=== PATIENT | male | born 1995 | race African-American/Black ===

== ENCOUNTER 2019-01-30 14:54 | Inpatient (IN) | payer OTHER ==
[~2019-01-30] VITALS: Ht 180.3 cm; Wt 111.4 kg
[2019-01-30] VITALS (25 sets, daily range): BP systolic 99–112; BP diastolic 61–83
[2019-01-30] MEDS ORDERED: NS(*) 0.9% 1000 ML BAG 1,000 ML IV ONE (14:58)
[2019-01-30 15:10] LABS: PLATELET COUNT, AUTOMATED 268 K/uL (150-450)
--- NOTE | 2019-01-30 15:16 | ER Report ---
History and Physical Time Seen By MD: 15:00 Hx. of Stated Complaint: PATIENT TOOK 1 BOTTLE OF BENDADRYL. FOUND UNRESPONSIVE AT THE SCENE HPI/ROS CHIEF COMPLAINT: Overdose HISTORY OF PRESENT ILLNESS: Patient is a 24-year-old male who is suspected of taking a diphenhydramine overdose unknown time. The bottle of Benadryl sound to the patient there were apparently 100 tablets of 25 mg of Benadryl in the bottle and there was one pill remaining in the bottle. I am unable to obtain history from the patient as he is obtunded. EMS found the patient lying on the ground next to the bottle of Benadryl. There is history that the patient's girlfriend broke up with him last night and found him later today and she is a one who initiated the EMS call. Electronic medical record was reviewed. No prior contacts for this patient. It is unknown what past medical or surgical history or allergies this patient has. REVIEW OF SYSTEMS: Unable to obtain as patient is obtunded Allergies: Coded Allergies: ketamine (Verified Allergy, Severe, 01/30/19) Unable To Obtain Past Medical: Unable to Obtain/Update Constitutional Vital Sign - Last 24 Hours 01/30/19 01/30/19 01/30/19 01/30/19 14:53 14:54 14:57 14:59 Pulse 135 143 Resp 18 21 B/P (MAP) 142/98 142/98 (113) 180/99 (126) Pulse Ox 98 91 O2 Delivery Nasal Cannula 01/30/19 01/30/19 01/30/19 01/30/19 15:00 15:04 15:06 15:08 Pulse 153 Resp 24 B/P (MAP) 139/89 (106) 120/61 (80) 136/93 (107) Pulse Ox 72 01/30/19 01/30/19 01/30/19 01/30/19 15:09 15:10 15:12 15:14 Pulse 116 Resp 13 10 B/P (MAP) 140/73 (95) 166/111 (129) 174/99 (124) Pulse Ox 100 100 01/30/19 01/30/19 01/30/19 01/30/19 15:16 15:18 15:19 15:20 Pulse 117 Resp 13 B/P (MAP) 158/82 (107) 146/103 (117) 139/95 (110) Pulse Ox 100 01/30/19 01/30/19 01/30/19 01/30/19 15:22 15:24 15:26 15:29 Pulse 101 97 Resp 19 12 B/P (MAP) 132/67 (88) 130/75 (93) Pulse Ox 98 97 01/30/19 01/30/19 01/30/19 01/30/19 15:30 15:30 15:34 15:35 Pulse 99 Resp 15 B/P (MAP) 131/80 (97) 132/89 (103) Pulse Ox 95 FiO2 35.0 01/30/19 01/30/19 01/30/19 01/30/19 15:39 15:44 15:45 15:49 Pulse 94 95 98 Resp 16 14 17 B/P (MAP) 124/74 (91) Pulse Ox 97 96 96 01/30/19 01/30/19 01/30/19 01/30/19 15:50 15:54 15:55 15:59 Pulse 98 97 Resp 16 16 B/P (MAP) 128/79 (95) 126/78 (94) Pulse Ox 96 96 01/30/19 01/30/19 01/30/19 01/30/19 16:00 16:04 16:05 16:09 Pulse 90 83 Resp 14 13 B/P (MAP) 133/74 (93) 101/55 (70) Pulse Ox 97 95 01/30/19 01/30/19 01/30/19 01/30/19 16:10 16:10 16:13 16:15 Pulse 80 ??? Resp 13 ??? B/P (MAP) 93/48 (63) 93/48 (63) 93/49 (64) ???/??? Pulse Ox 96 ??? 01/30/19 01/30/19 01/30/19 01/30/19 16:15 16:18 16:18 16:20 B/P (MAP) ???/??? (1665) 89/44 (59) 89/44 88/63 (71) 01/30/19 01/30/19 01/30/19 01/30/19 16:20 16:25 16:25 16:30 Pulse 77 Resp 11 B/P (MAP) 88/63 97/66 (76) 97/66 97/55 (69) Pulse Ox 95 01/30/19 16:30 Pulse 77 Resp 14 B/P (MAP) 97/55 Pulse Ox 93 Intake and Output 01/30/19 01/30/19 01/31/19 15:00 23:00 07:00 Intake Total 2000 ml Output Total 200 ml Balance 1800 ml Physical Exam General/Constitutional: Patient is obtunded; GCS- E1,V1,M6=8 Head: Normocephalic and atraumatic. Eyes: Conjunctival clear, Pupils are dilated Ears:External canals are clear. Tympanic membranes are clear with normal landmarks and light reflex. Nares: No rhinorrhea or bleeding. Turbinates are pink and moist. Oropharyngeal: Mucous membranes are moist. There is no pharyngeal erythema or exudate. There are no palatal petechiae. Uvula is midline and symmetrical. Neck: Supple, no adenopathy. Cardiovascular: Heart is tachycardic Pulmonary: Lungs are clear to auscultation bilaterally. There are no wheezes, rales, or rhonchi. Chest rise is symmetrical Abdomen: Soft, nontender, no guarding or peritoneal signs. Extremities: No gross deformities, No peripheral cyanosis. Neuro: Obtunded GCS of 8, nonpurposeful symmetrical movements. Skin: No rashes, skin is warm dry and well perfused. Medical Decision Making Data Points Result Diagram: 01/31/1944501/31/19445 Laboratory Hematology Test 01/30/19 14:32 01/30/19 15:31 Magnesium Level 2.0 mg/dl (1.7-2.2) Total Creatine Kinase 175 U/L (55-170) Troponin I < 0.012 ng/ml Salicylates Level < 10 mg/L Salicylate Last Dose Date unk Serum Alcohol 30 mg/dl Urine Color Straw Urine Clarity Clear Urine pH 6.0 pH (4.8-9.5) Urine Specific Lindsay 1.003 Urine Protein Negative mg/dL (NEGATIVE) Urine Glucose (UA) Negative mg/dL (NEGATIVE) Urine Ketones Negative mg/dL (NEGATIVE) Urine Blood Negative (NEGATIVE) Urine Nitrite Negative (NEGATIVE) Urine Bilirubin Negative (NEGATIVE) Urine Urobilinogen Negative mg/dL (0.2-1.9) Urine Leukocyte Esterase Negative (NEGATIVE) Urine RBC None /HPF (0-2/HPF) Urine WBC <1 /HPF (0-5/HPF) Urine Squamous Epithelial Cells None /LPF (NONE-FEW) Urine Bacteria Negative /HPF (NONE-FEW) Urine Mucus None /HPF (NONE-FEW) Urine Opiates Screen Negative Urine Barbiturates Screen Negative Ur Tricyclic Antidepressants Screen Negative Urine Phencyclidine Screen Negative Urine Amphetamines Screen Negative Urine Benzodiazepines Screen Negative Urine Cocaine Screen Negative Urine Cannabinoids Screen Negative Chemistry Test 01/30/19 14:32 01/30/19 15:31 Magnesium Level 2.0 mg/dl (1.7-2.2) Total Creatine Kinase 175 U/L (55-170) Troponin I < 0.012 ng/ml Salicylates Level < 10 mg/L Salicylate Last Dose Date unk Serum Alcohol 30 mg/dl Urine Color Straw Urine Clarity Clear Urine pH 6.0 pH (4.8-9.5) Urine Specific Lindsay 1.003 Urine Protein Negative mg/dL (NEGATIVE) Urine Glucose (UA) Negative mg/dL (NEGATIVE) Urine Ketones Negative mg/dL (NEGATIVE) Urine Blood Negative (NEGATIVE) Urine Nitrite Negative (NEGATIVE) Urine Bilirubin Negative (NEGATIVE) Urine Urobilinogen Negative mg/dL (0.2-1.9) Urine Leukocyte Esterase Negative (NEGATIVE) Urine RBC None /HPF (0-2/HPF) Urine WBC <1 /HPF (0-5/HPF) Urine Squamous Epithelial Cells None /LPF (NONE-FEW) Urine Bacteria Negative /HPF (NONE-FEW) Urine Mucus None /HPF (NONE-FEW) Urine Opiates Screen Negative Urine Barbiturates Screen Negative Ur Tricyclic Antidepressants Screen Negative Urine Phencyclidine Screen Negative Urine Amphetamines Screen Negative Urine Benzodiazepines Screen Negative Urine Cocaine Screen Negative Urine Cannabinoids Screen Negative Toxicology Test 01/30/19 14:32 01/30/19 15:31 Salicylates Level < 10 mg/L Salicylate Last Dose Date unk Serum Alcohol 30 mg/dl Urine Opiates Screen Negative Urine Barbiturates Screen Negative Ur Tricyclic Antidepressants Screen Negative Urine Phencyclidine Screen Negative Urine Amphetamines Screen Negative Urine Benzodiazepines Screen Negative Urine Cocaine Screen Negative Urine Cannabinoids Screen Negative Urinalysis Test 01/30/19 15:31 Urine Color Straw Urine Clarity Clear Urine pH 6.0 pH (4.8-9.5) Urine Specific Lindsay 1.003 Urine Protein Negative mg/dL (NEGATIVE) Urine Glucose (UA) Negative mg/dL (NEGATIVE) Urine Ketones Negative mg/dL (NEGATIVE) Urine Blood Negative (NEGATIVE) Urine Nitrite Negative (NEGATIVE) Urine Bilirubin Negative (NEGATIVE) Urine Urobilinogen Negative mg/dL (0.2-1.9) Urine Leukocyte Esterase Negative (NEGATIVE) Urine RBC None /HPF (0-2/HPF) Urine WBC <1 /HPF (0-5/HPF) Urine Squamous Epithelial Cells None /LPF (NONE-FEW) Urine Bacteria Negative /HPF (NONE-FEW) Urine Mucus None /HPF (NONE-FEW) EKG/Imaging EKG Interpretation EKG shows normal sinus rhythm with left axis deviation and no significant ST or T-wave abnormalities noted. QTC is 464 ms. Monitor Interpretation: Normal Sinus Rhythm Imaging Chest x-ray shows approximately 1 cm above the myriam we will remove the ET tube 1 cm from 25 cm at the teeth to 24 cm. NG tube projects into the stomach below the diaphragm. ED Course/Re-evaluation Clinical Indication for ER IV: IV Access ED Course 01/30/2019 3:33:30 pm because patient is not protecting his airway; has a GCS of 8. The need for securing his airway was indicated. Based on criteria patient is soon to be difficult airway but not a difficult mask ventilation. We'll proceed with RSI. Procedure: Rapid sequence intubation. Indication for the procedure was airway protection. The patient was preoxygenated with 100% oxygen by face mask. The patient was given the following IV medications: 30 mg of etomidate, 200 mg of succinylcholine . The patient was orally endotracheally intubated under direct visualization with a 8.0 ETT. In line stabilization was performed during the procedure. Tracheal intubation was confirmed with misting on the tube; breath sounds were auscultated equally bilaterally; appropriate color change with [place] End Tidal CO2 detector. Chest X-ray shows ETT Centimeter above the Myriam at 25 Cm at the Teeth. The ET Tube Was Retracted 1 Cm to 24 Cm at the Teeth.. The procedure was performed by myself. 01/30/2019 3:48:06 pm I did speak with poison control regarding this patient. Treatment will require monitoring in an ICU setting with serial EKGs and continuous cardiac on entering. We will be watching for widening of the QRS complex. If this occurs treatment for a tricyclic-like reaction would be indicated. Further treatment with IV fluids and benzodiazepines until symptoms clear. Patient will be detained for suicide attempt. Patient is currently not medically cleared for detainment however once he is medically cleared we will uphold detainment. Decision to Disposition Date: Jan 30, 2019 Decision to Disposition Time: 15:49 Depart Departure Latest Vital Signs Vital Signs Date Time Temp Pulse Resp B/P (MAP) Pulse Ox O2 Delivery O2 Flow Rate FiO2 01/30/19 16:30 77 14 97/55 93 01/30/19 15:30 35.0 01/30/19 14:53 Nasal Cannula Impression: Primary Impression: Overdose of antipruritic Condition: Improved Disposition: Admitted from ER (to ICU Dr Carrillo) Problem Qualifiers Primary Impression: Overdose of antipruritic Encounter type: initial encounter Injury intent: intentional self-harm Qualified Codes: T49.1X2A - Poisoning by antipruritics, intentional self- harm, initial encounter CECILIA GRANDA MD Jan 30, 2019 15:16
[2019-01-30] MEDS ORDERED: PROPOFOL(*)1000 MG/100 ML VIAL 100 ML IV PRN (15:20)
[2019-01-30] MEDS ORDERED: MIDAZOLAM 2 MG/2 ML VIAL IVP ONE (15:25)
--- NOTE | 2019-01-30 15:33 | RADIOLOGY IMAGING REPORT ---
FACILITY: [facility] PATIENT NAME: Ortega Barbour : 1995 MR: [id number] V: [id number] EXAM DATE: ORDERING PHYSICIAN: CECILIA GRANDA TECHNOLOGIST: Location: [facility] - [place] Patient: Ortega Barbour : 1995 Visit/Account:[id number] Date of Sevice: 01/30/2019 Exam type: CHEST SINGLE AP History: Comparison: None. Findings: Lung volumes are low. Interstitial prominence may be accentuated by expiratory technique. No focal infiltrate, pleural effusion or pneumothorax. Heart size is prominent. ET tube is 17 mm above the myriam. The osseous structures are unremarkable. NG tube is coiled in the stomach. IMPRESSION: 1. ET tube is 17 mm above the myriam. 2. NG tube is coiled in stomach. 3. Low lung volumes without focal infiltrate. Report Dictated By: Jose De Jesus Soni MD at 01/30/2019 3:28 PM Report E-Signed By: Jose De Jesus Soni MD at 01/30/2019 3:30 PM WSN:[id number]
[2019-01-30] MEDS ORDERED: KCL (*) 20 MEQ/100 ML PREMIX 100 ML IV SCH (15:35)
[2019-01-30] MEDS ORDERED: EMS NS 0.9%(*) 1000 ML BAG 1,000 ML IV ONE (15:55)
[2019-01-30] MEDS ORDERED: fentaNYL CITR 100 MCG/2 ML AMP IVP ONE (16:00)
[2019-01-30] MEDS ORDERED: NS(*) 0.9% 500 ML BAG 500 ML IV ONE (16:10)
[2019-01-30] MEDS ORDERED: ETOMIDATE 40 MG/20 ML IVP ONE (16:10)
[2019-01-30] MEDS ORDERED: SUCCINYLCHOL CHL 100MG/5ML SYR IVP ONE (16:10)
--- NOTE | 2019-01-30 16:56 | RADIOLOGY IMAGING REPORT ---
FACILITY: [facility] PATIENT NAME: Ortega Barbour : 1995 MR: [id number] V: [id number] EXAM DATE: ORDERING PHYSICIAN: CECILIA GRANDA TECHNOLOGIST: Location: Patient: Ortega Barbour : 1995 Visit/Account:[id number] Date of Sevice: 01/30/2019 EXAMINATION: CT head without IV contrast HISTORY: AMS. TECHNIQUE: Axial CT images of the head were obtained from the vertex to the skull base without IV c ontrast, with coronal and sagittal 2D reconstructed images. One of the following dose optimization techniques was utilized in the performance of this exam: Autom ated exposure control; adjustment of the mA and/or kV according to the patient's size; or use of an i terative reconstruction technique. Specific details can be referenced in the facility's radiology C T exam operational policy. COMPARISON: None. FINDINGS: The intracranial contents are unremarkable. No CT evidence of intracranial hemorrhage, mass lesion, or acute infarct. No midline shift or extra-axial fluid collections. Bolivar-white differentiation is maintained. The calvarium is intact. The visualized paranasal sinuses and mastoid air cells are unopacified. IMPRESSION: Unremarkable noncontrast head CT. Report Dictated By: Daniel Amaro MD at 01/30/2019 4:48 PM Report E-Signed By: Daniel Amaro MD at 01/30/2019 4:52 PM WSN:[id number]
--- NOTE | 2019-01-30 16:59 | RADIOLOGY IMAGING REPORT ---
FACILITY: [facility] - [place] PATIENT NAME: Ortega Barbour : 1995 MR: [id number] V: [id number] EXAM DATE: ORDERING PHYSICIAN: CECILIA GRANDA TECHNOLOGIST: Location: [facility] - [place] Patient: Ortega Barbour : 1995 Visit/Account:[id number] Date of Sevice: 01/30/2019 EXAMINATION: CT cervical spine without IV contrast HISTORY: AMS. TECHNIQUE: Thin axial CT images of the cervical spine were obtained without IV contrast, with sagit mary and coronal 2D reconstructed images. One of the following dose optimization techniques was utilized in the performance of this exam: Autom ated exposure control; adjustment of the mA and/or kV according to the patient's size; or use of an i terative reconstruction technique. Specific details can be referenced in the facility's radiology C T exam operational policy. COMPARISON: None. FINDINGS: The cervical spine is negative for acute fracture or subluxation. Normal alignment. Vertebral body height and disc spaces are preserved. The dens is intact. The craniocervical junction demonstrates normal alignment. Endotracheal and enteric tubes in place. IMPRESSION: Negative cervical spine CT. Report Dictated By: Daniel Amaro MD at 01/30/2019 4:53 PM Report E-Signed By: Daniel Amaro MD at 01/30/2019 4:56 PM WSN:[id number]
[2019-01-30] MEDS ORDERED: FLUSH 10 ML SYR IVP PRN (17:00)
[2019-01-30] MEDS: KCL (*) 20 MEQ/100 ML PREMIX 100 ML IV SCH ×2 (17:53→19:55)
--- NOTE | 2019-01-30 18:11 | History & Physical ---
History of Present Illness Chief Complaint Diphenhydramine overdose. History of Present Illness Patient unable to give history as he was obtunded upon admission to ER then intubated and sedated. Per EMS, the patient's girlfriend broke up with him last night. The patient's roommate and friends are available to provide some history. The patient's friends note that his girlfriend told him last evening that she was but that she planned to terminate the and no longer wanted to see him. The friends checked on him this morning at about 10:30 and he was acting very cold and withdrawn. He declined an invitation to have breakfast with them. Per the friends, his girlfriend told them that he called her at 14:30 and was confused. She went to his house and found him confused. He then collapsed and she called 911. EMS found him obtunded with a bottle of 100-count Benadryl next to him. One pill remained in the bottle. The patient's friends found a suicide note on his phone that was timed to go out to friends and family at 1700 this evening. Per the patient's roommate, the patient has struggled with depression. He has not been on medications and has not had counseling. He did not know of a previous suicide attempt. History Unable To Obtain Past Medical: Unable to Obtain/Update Allergies: Coded Allergies: UNABLE TO OBTAIN (Unverified , 01/30/19) Other Social/Family Hx Unable to obtain. Review of Systems Other Unable to obtain. Exam Vital Signs Vital Signs Date Time Temp Pulse Resp B/P (MAP) Pulse Ox O2 Delivery O2 Flow Rate FiO2 01/30/19 16:55 94/56 01/30/19 16:45 74 14 95 01/30/19 14:53 Nasal Cannula General Appearance: Other Eyes: Other (Pupils are pinpoint.) Neck: No Masses Cardiovascular: Regular Rate and Rhythm Respiratory: Clear to Auscultation GI: Other (Bowel sounds absent.) Lymph: Cervical Nodes Benign Extremities: Warm, Perfused, Other (No edema.) Integumentary: Other (Skin is dry. No perspiration.) Psych: Other (Intubated and sedated.) Medical Decision Making Data Points Result Diagram: 01/30/19 1432 01/30/19 1432 Item Value Date Time Salicylates Level < 10 mg/L 01/30/19 1432 Salicylate Last Dose Date unk 01/30/19 1432 Acetaminophen Level < 10 ug/ml 01/30/19 1432 Serum Alcohol 30 mg/dl 01/30/19 1432 Urine Opiates Screen Negative 01/30/19 1531 Urine Barbiturates Screen Negative 01/30/19 1531 Ur Tricyclic Antidepressants Screen Negative 01/30/19 1531 Urine Phencyclidine Screen Negative 01/30/19 1531 Urine Amphetamines Screen Negative 01/30/19 1531 Urine Benzodiazepines Screen Negative 01/30/19 1531 Urine Cocaine Screen Negative 01/30/19 1531 Urine Cannabinoids Screen Negative 01/30/19 1531 Sodium Level 140 mmol/L 01/30/19 1432 Potassium Level 3.2 mmol/L L 01/30/19 1432 Chloride Level 105 mmol/L 01/30/19 1432 Carbon Dioxide Level 25 mmol/L 01/30/19 1432 Blood Urea Nitrogen 6 mg/dl L 01/30/19 1432 Creatinine 1.30 mg/dl H 01/30/19 1432 Glomerular Filtration Rate Calc > 60.0 01/30/19 1432 Random Glucose 151 mg/dl H 01/30/19 1432 Calcium Level 9.2 mg/dl 01/30/19 1432 Magnesium Level 2.0 mg/dl 01/30/19 1432 Total Bilirubin 0.8 mg/dl 01/30/19 1432 Aspartate Amino Transf (AST/SGOT) 29 U/L 01/30/19 1432 Alanine Aminotransferase (ALT/SGPT) 32 U/L 01/30/19 1432 Alkaline Phosphatase 45 U/L 01/30/19 1432 Total Protein 6.8 g/dl 01/30/19 1432 Albumin 4.2 g/dl 01/30/19 1432 Total Creatine Kinase 175 U/L H 01/30/19 1432 Troponin I < 0.012 ng/ml 01/30/19 1432 EKG / Imaging EKG Interpretation Initial EKG shows sinus tachycardia with slightly prolonged QT interval. Imaging FACILITY: [facility] PATIENT NAME: Ortega Barbour : 1995 MR: [id number] V: [id number] EXAM DATE: [id number] ORDERING PHYSICIAN: CECILIA GRANDA TECHNOLOGIST: Location: [facility] - [place] Patient: Ortega Barbour : 1995 Visit/Account:[id number] Date of Sevice: 01/30/2019 Exam type: CHEST SINGLE AP History: Comparison: None. Findings: Lung volumes are low. Interstitial prominence may be accentuated by expiratory technique. No focal infiltrate, pleural effusion or pneumothorax. Heart size is prominent. ET tube is 17 mm above the myriam. The osseous structures are unremarkable. NG tube is coiled in the stomach. IMPRESSION: 1. ET tube is 17 mm above the myriam. 2. NG tube is coiled in stomach. 3. Low lung volumes without focal infiltrate. Report Dictated By: Jose De Jesus Soni MD at 01/30/2019 3:28 PM Report E-Signed By: Jose De Jesus Soni MD at 01/30/2019 3:30 PM WSN:[id number] FACILITY: [facility] PATIENT NAME: Ortega Barbour : 1995 MR: [id number] V: [id number] EXAM DATE: ORDERING PHYSICIAN: CECILIA GRANDA TECHNOLOGIST: Location: [facility] - [place] Patient: Ortega Barbour : 1995 Visit/Account:[id number] Date of Sevice: 01/30/2019 EXAMINATION: CT cervical spine without IV contrast HISTORY: AMS. TECHNIQUE: Thin axial CT images of the cervical spine were obtained without IV contrast, with sagittal and coronal 2D reconstructed images. One of the following dose optimization techniques was utilized in the performance of this exam: Automated exposure control; adjustment of the mA and/or kV according to the patient's size; or use of an iterative reconstruction technique. Specific details can be referenced in the facility's radiology CT exam operational policy. COMPARISON: None. FINDINGS: The cervical spine is negative for acute fracture or subluxation. Normal alignment. Vertebral body height and disc spaces are preserved. The dens is intact. The craniocervical junction demonstrates normal alignment. Endotracheal and enteric tubes in place. IMPRESSION: Negative cervical spine CT. Report Dictated By: Daniel Amaro MD at 01/30/2019 4:53 PM Report E-Signed By: Daniel Amaro MD at 01/30/2019 4:56 PM WSN:[id number] FACILITY: [facility] PATIENT NAME: Ortega Barbour DOB: 1995 MR: [id number] V: [id number] EXAM DATE: ORDERING PHYSICIAN: CECILIA GRANDA TECHNOLOGIST: Location: [facility] - [place] Patient: Ortega Barbour : 1995 Visit/Account:[id number] Date of Sevice: 01/30/2019 EXAMINATION: CT head without IV contrast HISTORY: AMS. TECHNIQUE: Axial CT images of the head were obtained from the vertex to the skull base without IV contrast, with coronal and sagittal 2D reconstructed images. One of the following dose optimization techniques was utilized in the performance of this exam: Automated exposure control; adjustment of the mA and/or kV according to the patient's size; or use of an iterative reconstruction technique. Specific details can be referenced in the facility's radiology CT exam operational policy. COMPARISON: None. FINDINGS: The intracranial contents are unremarkable. No CT evidence of intracranial hemorrhage, mass lesion, or acute infarct. No midline shift or extra-axial fluid collections. Bolivar-white differentiation is maintained. The calvarium is intact. The visualized paranasal sinuses and mastoid air cells are unopacified. IMPRESSION: Unremarkable noncontrast head CT. Report Dictated By: Daniel Amaro MD at 01/30/2019 4:48 PM Report E-Signed By: Daniel Amaro MD at 01/30/2019 4:52 PM WSN:[id number] Pre-Admit Course Medical Record Review: No Assessment and Plan Problems: (1) Diphenhydramine overdose Status: Acute Assessment & Plan: Admit to ICU. Monitor on telemetry. Repeat Tylenol level at 18:30. Repeat ABG at 18:30. Hydrate with NS. Serial EKGs to monitor QT interval. Potassium replacement IV with follow up BMP after potassium infused. Repeat labs in am. TSH is pending. B[facility] consult when patient extubated. Continue to consult with Poison Control as needed. The patient will remain intubated and sedated until he is no longer confused/combative and can manage his airway. On a police hold currently. Time Spent on Plan of Care: < 30 min Venous Thromboembolism Antithrombotics Is Pt On Any Antithrombotics?: Yes Exam Sepsis Risk: No Definite Risk Problem Qualifiers (1) Diphenhydramine overdose: Encounter type: initial encounter STEPHANIE BEARD MD Jan 30, 2019 18:11
--- NOTE | 2019-01-30 18:21 | EKG ---
FACILITY: [facility] - [place] PATIENT NAME: TAMELA SACNHEZ : [id number] MR: [id number] V: [id number] EXAM DATE: ORDERING PHYSICIAN: CECILIA GRANDA TECHNOLOGIST: WERO Test Reason : OD Blood Pressure : / mmHG Vent. Rate : 097 BPM Atrial Rate : 097 BPM P-R Int : 188 ms QRS Dur : 100 ms QT Int : 366 ms P-R-T Axes : 047 -61 002 degrees QTc Int : 464 ms Normal sinus rhythm Left axis deviation Non- specific T wave changes. Abnormal ECG No previous ECGs available Confirmed by DEBORAH MCGRATH ([id number]) on 01/30/2019 8:41:13 PM Referred By: JESUS ALBERTO Confirmed By:DEBORAH MCGRATH
--- NOTE | 2019-01-30 18:22 | EKG ---
FACILITY: [facility] - [place] PATIENT NAME: TAMELA SANCHEZ : [id number] MR: [id number] V: [id number] EXAM DATE: ORDERING PHYSICIAN: CECILIA GRANDA TECHNOLOGIST: Test Reason : Blood Pressure : / mmHG Vent. Rate : 080 BPM Atrial Rate : 080 BPM P-R Int : 188 ms QRS Dur : 084 ms QT Int : 410 ms P-R-T Axes : 053 -20 009 degrees QTc Int : 472 ms Normal sinus rhythm Non- specific T changes. Borderline prolonged QTC. When compared with ECG of 30-JAN-2019 15:35, No significant change was found Confirmed by DEBORAH MCGRATH ([id number]) on 01/30/2019 8:42:06 PM Referred By: Confirmed By:DEBORAH MCGRATH
[2019-01-30] MEDS: PROPOFOL(*)1000 MG/100 ML VIAL 100 ML IV PRN ×3 (18:47→23:46)
--- NOTE | 2019-01-30 20:16 | EKG ---
FACILITY: [facility] - [place] PATIENT NAME: TAMELA SANCHEZ : [id number] MR: [id number] V: [id number] EXAM DATE: ORDERING PHYSICIAN: STEPHANIE BEARD TECHNOLOGIST: COMFORT Test Reason : OVERDOSE, QT CHECK Blood Pressure : / mmHG Vent. Rate : 073 BPM Atrial Rate : 073 BPM P-R Int : 194 ms QRS Dur : 086 ms QT Int : 408 ms P-R-T Axes : 054 -02 009 degrees QTc Int : 449 ms Normal sinus rhythm Non- specific ST-T changes. Abnormal ECG When compared with ECG of 30-JAN-2019 17:32, No significant change was found Confirmed by DEBORAH MCGRATH ([id number]) on 01/30/2019 8:43:10 PM Referred By: KISHA Confirmed By:DEBORAH MCGRATH
--- NOTE | 2019-01-30 20:18 | BHS - Psychiatric Evaluation ---
ER - Title 25 MHE Evaluation Title 25 Evaluation Patient Detained By: Physician Referral Source: Professional: Dr. Chance Date Patient Detained: Jan 30, 2019 Time Patient Detained: 15:36 Date Fdc Expires: Feb 02, 2019 Time Fdc Expires: 15:36 Legal Status: Police Hold: No Legal Status: Residence: [facility] Assessment Data Provided By: Family Member(s) (Patient mother), Other Source (Patient Electronic Medical Record (EMR)) HPI/ROS: PATIENT TOOK 1 BOTTLE OF BENDADRYL. FOUND UNRESPONSIVE AT THE SCENE HPI/ROS CHIEF COMPLAINT: Overdose HISTORY OF PRESENT ILLNESS: Patient is a 24-year-old male who is suspected of taking a diphenhydramine overdose unknown time. The bottle of Benadryl sound to the patient there were apparently 100 tablets of 25 mg of Benadryl in the bottle and there was one pill remaining in the bottle. I am unable to obtain history from the patient as he is obtunded. EMS found the patient lying on the ground next to the bottle of Benadryl. There is history that the patient's girlfriend broke up with him last night and found him later today and she is a one who initiated the EMS call. Electronic medical record was reviewed. No prior contacts for this patient. It is unknown what past medical or surgical history or allergies this patient has. Admit due to SI or Attempt: Yes Suicide Plan: Has Plan with Access Alcohol or Drugs Involved: Yes (alcohol) Is Patient Info Reliable: No (Patient is unconscious and intubated) Is Collateral Info Reliable: Yes (Yes patient mother) Current Home Psych Meds: Patient mother reports no psychiatric medications. Mental Status Exam General Appearance: Other (Patient is unconscious and intubated) Insight Judgment: Poor Current Risk & History Current Dangerous Risk Assessm: Other (Patient is unconscious and intubated) Past Dangerous Risk Assessm: Other (Patient mother is not reporting any past attempts at this time.) Previous Suicide Attempt: No Previous Attempt (No previous attempt per patient mother's report) Previous Psychiatric Illness: No Previous Psychiatric Treatment: No Risk Assessment & Disposition Evaluated Risk Assessment: Unable to evaluate at this time. Meets Mental Illness Req.: No Meets Dangerousness Req.: No (Unable to determine. It is believed patient intentionally overdosed. He is unconscious and intubated. ) Emergency Fdc to be: Lifted Date of Decision: Jan 30, 2019 Time of Decision: 20:10 Patient is Medically Stable at: No Disposition: ICU WILDER GARCIA LPC Jan 30, 2019 20:18
[2019-01-30] MEDS: ORAL SUCTION/CHLORHX/SWAB KIT MT SCH (21:12)
[2019-01-30] MEDS: NS(*) 0.9% 1000 ML BAG 1,000 ML IV PRN (21:13)
--- NOTE | 2019-01-30 22:19 | EKG ---
FACILITY: [facility] PATIENT NAME: TAMELA SANCHEZ : [id number] MR: [id number] V: [id number] EXAM DATE: ORDERING PHYSICIAN: STEPHANIE BEARD TECHNOLOGIST: COMFORT Test Reason : OVERDOSE, QT CHECK Blood Pressure : / mmHG Vent. Rate : 067 BPM Atrial Rate : 067 BPM P-R Int : 212 ms QRS Dur : 084 ms QT Int : 418 ms P-R-T Axes : 047 002 002 degrees QTc Int : 441 ms Sinus rhythm with 1st degree AV block Nonspecific ST abnormality Abnormal ECG No previous ECGs available Confirmed by DEBORAH MCGRATH ([id number]) on 01/31/2019 1:23:14 AM Referred By: KISHA Confirmed By:DEBORAH MCGRATH
[2019-01-31] VITALS (30 sets, daily range): BP systolic 93–124; BP diastolic 48–77; Ht 180.3 cm; Wt 111.4 kg
[2019-01-31] MEDS: PROPOFOL(*)1000 MG/100 ML VIAL 100 ML IV PRN ×4 (02:18→09:00)
[2019-01-31] MEDS: NS(*) 0.9% 1000 ML BAG 1,000 ML IV PRN ×3 (04:45→12:40)
[2019-01-31 05:01] LABS: PLATELET COUNT, AUTOMATED 171 K/uL (150-450)
--- NOTE | 2019-01-31 07:32 | Hospitalist Progress Note ---
Subjective Progress Notes Subjective Sedated on ventilator. No dysrhythmias. No obvious seizure activity. Physical Exam Vital Signs Date Time Temp Pulse Resp B/P (MAP) Pulse Ox O2 Delivery O2 Flow Rate FiO2 01/31/19 07:16 30.0 01/31/19 07:16 87 01/31/19 06:00 14 93/48 (63) 94 Mechanical Ventilator 01/31/19 05:00 98.8 Intake and Output 01/31/19 07:00 Intake Total 4572.4 ml Output Total 2430 ml Balance 2142.4 ml Intake IV Total 4572.4 ml Output Urine Total 2400 ml Gastric Drainage Total 30 ml General Appearance: Other (sedated on ventilator) ENT: Other (ET/OG tubes in place) Cardiovascular: Regular Rate and Rhythm Respiratory: Clear to Auscultation GI: Other (rare BS) Extremities: Warm, Perfused Result Diagram: 01/31/196 01/31/19445 Monitor Interpretation: Normal Sinus Rhythm Assessment and Plan Problems: (1) Diphenhydramine overdose Status: Acute Assessment & Plan: He is now more than 2 half-lives out from the ingestion. Stable on ventilator. Telemetry unremarkable. QTc in normal range. Repeat Tylenol level was negative. Potassium level now in normal range with replacement. TSH is pending. BHS/psychiatric consult when patient extubated. Emergency custodial lifted as he is intubated/sedated, but it may need to be reinstated. Will lift sedation through the morning and reassess his mental status. Will extubate as soon as he is stable/not agitated/able to follow some commands. Exam Sepsis Risk: No Definite Risk ROBEL BEARD MD Jan 31, 2019 07:32
[2019-01-31] MEDS: ENOXAPARIN 40 MG/0.4ML SYR SC SCH (08:51)
[2019-01-31] MEDS: ORAL SUCTION/CHLORHX/SWAB KIT MT SCH (08:51)
--- NOTE | 2019-01-31 12:21 | EKG ---
FACILITY: [facility] PATIENT NAME: TAMELA SANCHEZ : [id number] MR: [id number] V: [id number] EXAM DATE: ORDERING PHYSICIAN: ROBEL BEARD TECHNOLOGIST: TONI Foley Reason : CP Blood Pressure : / mmHG Vent. Rate : 082 BPM Atrial Rate : 082 BPM P-R Int : 172 ms QRS Dur : 092 ms QT Int : 358 ms P-R-T Axes : 038 013 -03 degrees QTc Int : 418 ms Sinus rhythm Nonspecific ST findings similar to previous QTc interval in normal range Borderline ECG Confirmed by ROBEL BEARD ([id number]) on 01/31/2019 12:52:15 PM Referred By: KISHA Confirmed By:ROBEL BEARD
--- NOTE | 2019-01-31 12:24 | RADIOLOGY IMAGING REPORT ---
FACILITY: [facility] PATIENT NAME: Ortega Barbour : 1995 MR: [id number] V: [id number] EXAM DATE: ORDERING PHYSICIAN: ROBEL BEARD TECHNOLOGIST: Location: [facility] [place] Patient: Ortega Barbour : 1995 Visit/Account:[id number] Date of Sevice: 01/31/2019 Single view of the chest Indication: Aspiration. Comparison: X-ray examination of the chest from January 30. Findings: Patient has been extubated. Low volumes without focal consolidation, effusion or pneumothorax. No a cute bony finding. IMPRESSION: 1. Post extubation. Low volumes without acute finding. Report Dictated By: Brian Martinez MD at 01/31/2019 12:20 PM Report E-Signed By: Brian Martinez MD at 01/31/2019 12:21 PM WSN:[id number]
[2019-01-31] MEDS ORDERED: NS(*) 0.9% 1000 ML BAG 1,000 ML IV PRN (14:49)
[2019-01-31] MEDS ORDERED: ACETAMINOPHEN 500 MG TAB PO ONE (16:00)
[2019-02-01] VITALS (10 sets, daily range): BP systolic 113–131; BP diastolic 67–86
[2019-02-01 05:07] LABS: PLATELET COUNT, AUTOMATED 185 K/uL (150-450)
[2019-02-01] MEDS ORDERED: ACETAMINOPHEN 500 MG TAB PO PRN (07:55)
[2019-02-01] MEDS ORDERED: BENZOCAINE/MENTHOL 1 EACH LOZG PO PRN (07:55)
[2019-02-01] MEDS: ENOXAPARIN 40 MG/0.4ML SYR SC SCH (08:13)
--- NOTE | 2019-02-01 13:31 | Hospitalist Depart ---
Discharge Summary Reason for Hosp/Final Diag: (1) Diphenhydramine overdose Status: Acute Hospital Course & Plan: Patient self extubated 01.31.2019 during sedation vacation and remained stable. Telemetry remained unremarkable. QTc in normal range. Repeat Tylenol level was negative. Potassium level in normal range with r eplacement. TSH WNL. S/psychiatric consult and patient determined best course is to go to [facility] as inpatient. Discharged to continue therapy. Departure Weight (Pounds): 245 Weight (Ounces): 8.0 Result Diagram: 02/01/1944902/01/19449 Condition: Improved Discharge: [facility] Discharge Instructions Home Meds Unable to Obtain Active Prescriptions or Reported Meds Diet: Regular Activity: As Tolerated Venous Thromboembolism Antithrombotics Is Pt On Any Antithrombotics?: Yes MINO SU DO Feb 01, 2019 13:31
== END 2019-02-01 13:00 | DRG 917 ==
LOC: ER 15:19 → ICU 16:31
PROVIDERS: ADMIT Internal Medicine; ATTEND Internal Medicine
PROC: 0BH17EZ Insertion of Endotracheal Airway into Trachea, Via Natural or Artificial Opening (ICD-10-PCS; principal; 2019-01-30)
PROC: 5A1935Z Respiratory Ventilation, Less than 24 Consecutive Hours (ICD-10-PCS; 2019-01-30)
DX: T45.0X2A Poisoning by antiallergic and antiemetic drugs, intentional self-harm, initial encounter (principal); R40.2112 Coma scale, eyes open, never, at arrival to emergency department; R40.2212 Coma scale, best verbal response, none, at arrival to emergency department; R40.2362 Coma scale, best motor response, obeys commands, at arrival to emergency department
CPT/HCPCS: 36415; 36416; 36600; 70450; 71045; 72125; 80305; 80320; 80329; 81001; 82040; 82247; 82310; 82374; 82435; 82550; 82565; 82800; 82803; 82947; 82948; 83735; 84075; 84132; 84155; 84295; 84443; 84450; 84460; 84484; 84520; 85025; 93005; 94002; 94003; 94667; 94770; 99285; C1758; J0330; J1650; J2704; J3010; J3480; J7030; J7040

== ENCOUNTER → 2019-01-30 | Outpatient (CLI) | payer OTHER ==
[2019-01-31 12:02] VITALS: BMI 34.2
== END ==
LOC: AMB 14:23
PROVIDERS: ATTEND Nurse Practitioner
DX: R56.9 Unspecified convulsions (principal); E16.2 Hypoglycemia, unspecified; R40.4 Transient alteration of awareness
CPT/HCPCS: A0425; A0427

== ENCOUNTER 2019-02-01 13:01 | Inpatient (IN) | payer OTHER ==
[2019-01-31 12:02] VITALS: Ht 172.7 cm; Wt 112.5 kg
[~2019-02-01] VITALS: Ht 172.7 cm; Wt 112.5 kg
[2019-02-01 13:32] VITALS: BP 124/81
[2019-02-01] MEDS ORDERED: ACETAMINOPHEN 325 MG TAB PO PRN (14:35)
[2019-02-01] MEDS ORDERED: MAG HYD/AL HYD/SIMETH 30ML UDC PO PRN (14:35)
[2019-02-01 20:42] VITALS: BP 126/91
[2019-02-02 05:34] VITALS: BP 115/82
[2019-02-02] MEDS: MULTIVITAMINS TAB PO SCH (08:42)
[2019-02-02 13:23] VITALS: BP 123/80
--- NOTE | 2019-02-02 17:26 | HISTORY AND PHYSICAL ---
DATE OF ADMISSION: February 01, 2019 ATTENDING PHYSICIAN Nanci Delgadillo MD The patient was seen on February 02, 2019, at 9 a.m. for this history and physical. CHIEF COMPLAINT "I took an overdose, and then they had me in the ICU." HISTORY OF PRESENT ILLNESS This is the first ever psychiatric admission for this 24-year-old man who is here on a voluntary basis after a suicide attempt by overdose. The patient was not noticing any depressive symptoms. He was told by his girlfriend a couple of days prior to the overdose that she was , and he began making plans to save up money so that they could buy a house. Then on Thursday, the girlfriend told him she had decided that she did not want to keep the and that she did not love him, so they broke up. The patient said, "It hurt a lot." He felt like he had lost two people, both the baby and his girlfriend. He went over to a friend's house to talk over this situation, and then at about 2 o'clock in the morning on Thursday, he went home and drank some wine and took an overdose of a bottle of Benadryl tablets. On the ER report, it said they thought maybe 100 tablets. The patient tells me a bottle of 25 tablets. After he took the overdose, his girlfriend called, and he was unable to speak. She called 911, and he was transferred to the Emergency Room where he was intubated in the ER. He was initially placed on a title 25 involuntary hold, but when the examiner came to see him, he was intubated and sedated, and therefore, she lifted the residential since he was unable to comprehend his rights. He spent three days in the Intensive Care Unit where he was treated for the overdose with no complications. He agreed to sign in to [facility] voluntarily, so there was no need to reinstitute an involuntary hold. He was transferred up to [facility] yesterday and interviewed today. Today, he again denies any recent history of depression. He denies any recent suicidal thoughts. He said that the sudden news that his girlfriend was breaking up with him and not keeping the baby was extremely painful to him, and he impulsively took the overdose. He currently denies any further suicidal ideation ever since he took the overdose and currently reports that his mood is much improved at this time. He does agree that he would like to obtain treatment on [facility] to work on coping skills so that if he gets bad news in the future, he will be able to deal with it without a drastic reaction like this. PAST PSYCHIATRIC HISTORY The patient has never been in any inpatient nor outpatient psychiatric treatment. He has never had suicidal ideation. He denies any history of self- harm. FAMILY PSYCHIATRIC HISTORY Negative. PAST MEDICAL HISTORY Negative other than a fractured arm in the distant past and recently treated in ICU after his overdose, during which time he was ventilated. ALLERGIES He is allergic to KETAMINE, which caused him to swell up, and he had hallucinations when he had his fractured arm. SOCIAL HISTORY The patient was born in [place] to parents who are still . He has one younger sister. His mother has a master's in social work and works in the psychiatric treatment system in [place]. His father is retired. He says he has a good relationship with his parents and with his sisters. He attending [employer] and graduated with a GPA of about 3.0. He attended college in [place] at [employer] for one year and then transferred to the [employer]. He graduated successfully with a degree in criminal justice. 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 He lives with three roommates in house, and he has an extensive support system with good friends and good relationships with his parents. LEGAL HISTORY Negative. VICTIM ISSUES The patient denies any history of physical or sexual abuse. SUBSTANCE ABUSE HISTORY The patient drinks alcohol rarely, maybe two times per month, and only drinks one drink at any occasion. He has no other history of use of any other drugs. He is a nonsmoker. PHYSICAL EXAMINATION Please see the ICU physician's chart. VITAL SIGNS: Temperature 97.7, pulse 75, respiratory rate 15, blood pressure 124/81, pulse ox is 95% on room air. LABORATORY DATA We did not repeat any laboratory studies during his [facility] stay. During his ICU stay, his CBC was within normal limits. Chemistry panel was essentially within normal limits. On January 31, he did have an elevated creatine kinase of 243. On admission to the ER on 01/30/19, his serum alcohol had been 30, and his urine drug screen had been negative. His urinalysis had been within normal limits. MENTAL STATUS EXAMINATION He is a somewhat overweight -Hung[place] male with neatly cut hair, who is well groomed and dressed in hospital scrubs. He is cooperative and pleasant with good attention. His speech is normal in rate, tone, and volume. Mood and affect are euthymic. Thought process is logical and goal directed. Thought content is negative for any current suicidal ideation. The last time he had suicidal ideation was the night he took the overdose. He denies any homicidal ideation. There are no auditory or visual hallucinations. There are no delusions. He is alert and fully oriented to person, place, time, and situation. Memory is intact for immediate, recent, and remote recall. Intelligence is average to above average based on interview. Insight and judgment are good. IMPRESSION 1. Adjustment disorder with depressed and anxious mood. 2. Status post suicide attempt by overdose. PLAN He is admitted to [facility] and being maintained on suicide precautions. He will attend individual and group therapies. We have held a treatment team meeting with his mother today. He will be set up for outpatient psychotherapy at [facility] for after his discharge. There is no indication that antidepressant medication is indicated at this time. His estimated length of stay will be three days. SIVA
[2019-02-03 05:30] VITALS: BP 118/74
[2019-02-03] MEDS: MULTIVITAMINS TAB PO SCH (08:41)
[2019-02-03 09:50] VITALS: BP 113/78
--- NOTE | 2019-02-03 17:54 | BHS Discharge Summary ---
[facility] Discharge Summary Bnpa-dl-Kdvo Encounter Date: Feb 03, 2019 Mpiq-tr-Kfjv Encounter Time: 09:30 Reason-Hosp/Final Diag (DSM-V): (1) Adjustment disorder with mixed anxiety and depressed mood Hospital Course & Plan: The patient was seen on February 02, 2019, at 9 a.m. for this history and physical. CHIEF COMPLAINT "I took an overdose, and then they had me in the ICU." HISTORY OF PRESENT ILLNESS This is the first ever psychiatric admission for this 24-year-old man who is here on a voluntary basis after a suicide attempt by overdose. The patient was not noticing any depressive symptoms. He was told by his girlfriend a couple of days prior to the overdose that she was , and he began making plans to save up money so that they could buy a house. Then on Thursday, the girlfriend told him she had decided that she did not want to keep the and that she did not love him, so they broke up. The patient said, "It hurt a lot." He felt like he had lost two people, both the baby and his girlfriend. He went over to a friend's house to talk over this situation, and then at about 2 o'clock in the morning on Thursday, he went home and drank some wine and took an overdose of a bottle of Benadryl tablets. On the ER report, it said t colin thought maybe 100 tablets. The patient tells me a bottle of 25 tablets. After he took the overdose, his girlfriend called, and he was unable to speak. She called 911, and he was transferred to the Emergency Room where he was intubated in the ER. He was initially placed on a title 25 involuntary hold, but when the examiner came to see him, he was intubated and sedated, and t herefore, she lifted the long term since he was unable to comprehend his rights. He spent three days in the Intensive Care Unit where he was treated for the overdose with no complications. He agreed to sign in to [facility] voluntarily, so there was no need to reinstitute an involuntary hold. He was transferred up to [facility] yesterday and interviewed today. Today, he again denies any recent history of depression. He denies any recent suicidal thoughts. He said that the sudden news that his girlfriend was breaking up with him and not keeping the baby was extremely painful to him, and he impulsively took the overdose. He currently denies any further suicidal ideation ever since he took the overdose and currently reports that his mood is much improved at this time. He does agree that he would like to obtain treatment on [facility] to work on coping skills so that if he gets bad news in the future, he will be able to deal with it without a drastic reaction like this. PAST PSYCHIATRIC HISTORY The patient has never been in any inpatient nor outpatient psychiatric treatment. He has never had suicidal ideation. He denies any history of self- harm. HOSPITAL COURSE Pt was admitted to [facility] and maintained on suicide precautions. He was pleasant, cooperative and highly invested in his treatment, attending all groups and individual therapies, focusing on coping skills, mindfulness, crisis planning. His mother and father were very supportive in team meeting. He was eager to get involved in outpatient therapy so he can continue to work on coping skills. He denied SI consistently throughout his hospital stay. He did not display any signs of depression, his mood was good, affect was bright, and we did not recommend antidepressant therapy. He was discharged in stable condition to follow up at [facility] tomorrow. Physical Exam Latest Vital Signs Vital Signs 02/03/19 09:50 Temp 98.8 Pulse 78 Resp 16 B/P (MAP) 113/78 (90) Pulse Ox 93 O2 Delivery Room Air Mental Status Exam General Appearance: Casual, Well Groomed, Good Eye Contact, Cooperative, Polite, Good Interaction Speech: Clear, Spontaneous, Normal Rate, Normal Rhythm, Normal Volume, Normal Tone Mood: Euthymic Affect: Full and Appropriate Thought Process: Organized, Logical, Goal Directed Thought Content: No Suicidal Ideation, No Homicidal Ideation, No Delusions, No Auditory Halllucinations, No Visual Hallucinations, No Thought Broadcasting, No Ideas of Reference, No Obsessions, No Compulsions, No Other Sensorium: Clear Cognition: Alert & Oriented-Person, Alert & Oriented-Place, Alert & Oriented- Time, Esplb-Brjzmqdc-Oksdecrbr Memory: Immediate, Recent, Remote Intelligence: Average Insight Judgment: Good Departure Item Value Date Time White Blood Count 8.1 k/uL 02/01/19449 Red Blood Count 4.71 M/uL 02/01/19449 Hemoglobin 14.3 g/dL 4/9/19 0450 Hematocrit 42.5 % 02/01/19449 Mean Corpuscular Volume 90.2 fL 02/01/19449 Mean Corpuscular Hemoglobin 30.2 pg 02/01/19449 Mean Corpuscular Hemoglobin Concent 33.5 g/dL 02/01/19449 Red Cell Distribution Width 12.8 % 02/01/19449 Platelet Count 185 K/uL 02/01/19 0450 Sodium Level 138 mmol/L 02/01/19 0450 Potassium Level 3.5 mmol/L 02/01/19 0450 Chloride Level 109 mmol/L H 02/01/19 0450 Carbon Dioxide Level 26 mmol/L 02/01/19 045 Blood Urea Nitrogen 6 mg/dl L 02/01/19 0450 Creatinine 1.20 mg/dl 02/01/19 045 Glomerular Filtration Rate Calc > 60.0 02/01/19449 Whole Blood Glucose 83 mg/DL 01/31/19 0446 Random Glucose 89 mg/dl 02/01/19 0450 Calcium Level 8.0 mg/dl L 02/01/190 Magnesium Level 2.0 mg/dl 01/30/19 1432 Total Bilirubin 0.8 mg/dl 02/01/19 0450 Aspartate Amino Transf (AST/SGOT) 21 U/L 02/01/19 0450 Alanine Aminotransferase (ALT/SGPT) 28 U/L 02/01/19 0450 Alkaline Phosphatase 40 U/L 02/01/19 0450 Total Creatine Kinase 243 U/L H 01/31/19 1357 Troponin I < 0.012 ng/ml 01/30/19 1432 Total Protein 5.0 g/dl L 02/01/19 0450 Thyroid Stimulating Hormone (TSH) 2.15 uIU/ml 01/30/19 1432 Albumin 2.9 g/dl L 02/01/19 0450 Salicylates Level < 10 mg/L 01/30/19 1432 Salicylate Last Dose Date unk 01/30/19 1432 Urine Opiates Screen Negative 01/30/19 1531 Acetaminophen Level < 10 ug/ml 01/30/19 1929 Urine Barbiturates Screen Negative 01/30/19 1531 Ur Tricyclic Antidepressants Screen Negative 01/30/19 1531 Urine Phencyclidine Screen Negative 01/30/19 1531 Urine Amphetamines Screen Negative 01/30/19 1531 Urine Benzodiazepines Screen Negative 01/30/19 1531 Urine Cocaine Screen Negative 01/30/19 1531 Urine Cannabinoids Screen Negative 01/30/19 1531 Serum Alcohol 30 mg/dl 01/30/19 1432 Condition: Improved Discharge to: Home Discharge Instructions Home Meds No Active Prescriptions or Reported Meds Multpiple Antipsychotics Used: No Diet: Regular Activity: As Tolerated Special Instructions: Take medications as prescribed. Follow up with outpatient provider for medication management. Follow up with outpatient therapy at [facility]. Call Crisis Line should symptoms return. VICKY DENNIS MD Feb 03, 2019 17:54
== END 2019-02-03 16:30 | disposition home or self-care (01) | DRG 882 ==
LOC: BHS 13:01
PROVIDERS: ADMIT Psychiatry & Neurology Psychiatry; ATTEND Psychiatry & Neurology Psychiatry
DX: F43.23 Adjustment disorder with mixed anxiety and depressed mood (principal); T45.0X2D Poisoning by antiallergic and antiemetic drugs, intentional self-harm, subsequent encounter